=== PATIENT | female | born 1990 | race Asian ===

== ENCOUNTER 2023-11-25 13:48 | Outpatient (AMB) | payer OTHER, SELFPAY ==
--- NOTE | 2023-11-25 13:50 | AM.OFFWIN_ITS ---
Intake Vital Signs 11/25/23 13:56 Height 5 ft 1 in Weight 156 lb BMI 29.5 BP 114/62 Blood Pressure Location Rt brachial Position Sitting Pulse 78 Pulse Source Pulse Oximeter Temp 98.2 F Temp Source Oral Pulse Oximetry (%) 98 Oxygen Delivery Method Room Air Intake Visit Reasons: EP Removal of stitches Intake Note: Pt is here requesting to have her stitches removed. Pt had the stitches put in one week ago at [facility]. Patient Tobacco Use Status: Never used Tobacco Allergies No Known Allergies Allergy (Verified 11/25/23 14:24) Medication List - Last Reconciled 11/25/23 by Tino Marley MD No Known Home Meds Do you need a note to return to daycare/school/sports/work: No HPI EP Removal of stitches HPI Details 33 yr old female presents to the office for a sick visit. She would l michael the stiches removed from a digit in the right hand PFSH Family History (Updated 10/02/22 @ 08:02 by Whit Carlton MD) Father CAD (coronary artery disease) Mother HTN (hypertension) with goal to be determined Social History (Updated 10/02/22 @ 08:05 by Whit Carlton MD) Household Members Other:: , from [place], exercise, Housing: House Patient Tobacco Use Status: Never used Tobacco e-Cigarette/Vaping Use: Never Used service: No Current occupational status: unemployed Cognitive needs: No Hearing needs: No Vision needs: No Physical Exam Vital Signs: Last Vital Signs Temp 98.2 F 11/25/23 13:56 Pulse 78 11/25/23 13:56 BP 114/62 11/25/23 13:56 Pulse Ox 98 11/25/23 13:56 Oxygen Delivery Method Room Air 11/25/23 13:56 BMI result Body Mass Index 29.5 Extrem Other: Right hand: 3 stichces removed. Patient tolerated the procedure well. Assessment & Plan Assessment & Plan (1) Open wound of digit of hand: Code(s): S61.209A - Unspecified open wound of unspecified finger without damage to nail, initial encounter Plan Sutures removed. Patient tolerated the procedure well. Coding Level of Care Code Est Pt Level 3 (57702) Diagnoses Open wound of digit of hand S61.209A
[2023-11-25 13:56] VITALS: BP 114/62; PULSE 78; TEMP 36.8; O2SAT 98; BMI 29.5
== END 2023-11-25 14:37 | disposition home or self-care (01) ==
PROVIDERS: PCP Internal Medicine; Visit Provider Internal Medicine
DX: S61.209A Unspecified open wound of unspecified finger without damage to nail, initial encounter (principal)
CPT/HCPCS: 99213

== ENCOUNTER 2024-06-24 12:43 | Outpatient (AMB) | payer OTHER, SELFPAY ==
[2024-06-24 13:15] VITALS: BP 112/74; PULSE 76; O2SAT 99; BMI 28.2
--- NOTE | 2024-06-24 13:15 | A.OFFPC_ITS ---
Vital Signs 06/24/24 13:15 Height 5 ft 1 in Weight 149 lb BMI 28.2 BP 112/74 Blood Pressure Location Lt brachial Position Sitting Pulse 76 Pulse Source Pulse Oximeter Pulse Oximetry (%) 99 Oxygen Delivery Method Room Air Intake Visit Reasons: PE Intake Note: Pt is here today for PE. Allergies No Known Allergies Allergy (Verified 06/24/24 13:15) Medication List - Last Reconciled 06/24/24 by Whit Carlton MD docosahexaenoic acid ( DHA) mg PO Tobacco use date assessed: 06/24/24 Dental Screening Dental Screen Date: 06/24/24 Did you have a dental visit in the last 12 months?: Yes Did you have a dental problem in the last 6 months where you did not have access to dental care?: No Was dental information given to patient?: Patient has dentist HPI PE HPI Details Pt presents for PE. Pt complains of chronic L sided LBP since 2021, has been getting worse over last 10 months since patient has been taking care of her 10 month old son. Ptient is 5 week . PFSH Family History Father CAD (coronary artery disease) Mother HTN (hypertension) with goal to be determined Social History Household Members Other:: , from [place], exercise, Housing: House Patient Tobacco Use Status: Never used Tobacco e-Cigarette/Vaping Use: Never Used service: No Current occupational status: unemployed Cognitive needs: No Hearing needs: No Vision needs: No Questionnaire PHQ-9 Over the last 2 weeks, how often have you been bothered by any of the following problems? 1. Little interest or pleasure in doing things: not at all 2. Feeling down, depressed, or hopeless: not at all 3. Trouble falling or staying asleep, or sleeping too much: not at all 4. Feeling tired or having little energy: several days 5. Poor appetite or overeating: several days 6. Feeling bad about yourself - or that you are a failure or have let yourself or your family down: not at all 7. Trouble concentrating on things, such as reading the newspaper or watching television: not at all 8. Moving or speaking so slowly that other people could have noticed. Or the opposite - being so fidgety or restless that you have been moving around a lot more than usual: not at all 9. Thoughts that you would be better off or of hurting yourself in some way: not at all Total score: 2 Depression Screening Interpretation: Negative Depression Screening Done: Yes [id number] - PHQ-9 Billing: Yes Source: Developed by Drs. Poli Alvarez, Juana Figueroa, Fransisco Damon and colleagues, with an educational sanjana from [employer]. Thrive Questionnaire Date Thrive assessed: 06/24/24 I am a: Patient What is your living situation today?: I have a steady place to live Within the past 12 months, did the food you bought not last and you didn't have the money to get more?: Never true Within the past 12 months, did you worry whether your food would run out before you got money to buy more?: Never true Do you have trouble paying for medicines?: No Do you have trouble getting transportation to medical appointments?: Yes Do you have trouble paying your heating and electricity bill?: No Do you have trouble taking care of your child, family member or friend?: No Do you have trouble with day-to-day activities such as bathing, preparing meals, shopping, managing finances, etc.?: No Are you currently unemployed and looking for a job?: No Are you interested in more education?: Yes Please select the resources that you would like help with: Daily support Currently or been in a relationship where the following occur: No concerns reported THRIVE Score: 1 AUDIT C Alcohol Use Questionnaire (AUDIT-C) 1. How often do you have a drink containing alcohol?: Never 3. How often do you have six or more drinks on one occasion?: Never Total Score: 0 GWENDOLYN-7 AMB Questionnaire GWENDOLYN-7 Date GWENDOLYN - 7 assessed: 06/24/24 Feeling nervous, anxious, or on edge: 1 = Several days Not being able to stop or control worryin = Several days Worrying too much about different things: 0 = Not at all Trouble relaxin = Not at all Being so restless that it is hard to sit still: 0 = Not at all Becoming easily annoyed or irritable: 0 = Not at all Feeling afraid as if something awful might happen: 0 = Not at all Total GWENDOLYN-7 score (0-4 normal; 5-9 mild; 10-14 moderate; 15-21 severe): 2 Source: Developed by Drs. Poli Alvarez, Juana Figueroa, Fransisco Damon and colleagues, with an educational sanjana from [employer]. GWENDOLYN-7 Assessment Billing GWENDOLYN-7 Assessment Tool: GWENDOLYN-7 Assessment [id number] Review of Systems Const All systems reviewed & are unremarkable except as noted in HPI and below Eyes Reports no additional complaints ENT Reports no additional complaints Card Reports no additional complaints Resp Reports no additional complaints GI Reports no additional complaints Reports no additional complaints Physical exam (Primary Care) Vital Signs: Last Vital Signs Pulse 76 06/24/24 13:15 BP 112/74 06/24/24 13:15 Pulse Ox 99 06/24/24 13:15 Oxygen Delivery Method Room Air 06/24/24 13:15 BMI result Body Mass Index 28.2 Tobacco/Smoking Status: Tobacco use Status Tobacco use date assessed 06/24/24 06/24/24 13:16 Patient Tobacco Use Status Never used Tobacco 06/24/24 13:16 e-Cigarette/Vaping Use Never Used 06/24/24 13:16 PHQ-9: PHQ-9 Score PHQ-9: Total score 2 06/24/24 13:16 Depression Screening Interpretation: Negative Thrive Assessment: Date of Thrive Assessment Date Thrive assessed 06/24/24 06/24/24 13:26 Currently or been in a relationship where the following occur: No concerns reported Const General: no acute distress HENMT Ears: hearing grossly normal bilaterally Face and sinus: Yes normal facial exam Throat: Yes posterior oropharynx normal Eyes General: appearance normal, both eyes and all related structures Neck Neck: Yes no lymphadenopathy and Yes supple Resp Effort & Inspection: normal respiratory effort Auscultation: clear to auscultation bilaterally Cardio Rhythm: regular rhythm Heart sounds: S1 normal heart sound present and S2 normal heart sound present GI Inspection: Yes normal to inspection Palpation (GI): Soft to palpation Percussion: Yes normal to percussion Auscultation: normal bowel sounds Back/Spine/Pelvis Other: There is ready reproducible tenderness in the left lower lumbar region and over left SI joint, there is a full range of motion both hips . straight leg rising 90 degrees bilaterally, deep tendon reflexes 1+ bilaterally Assessment and Plan Assessment & Plan (1) SI (sacroiliac) pain: Code(s): M53.3 - Sacrococcygeal disorders, not elsewhere classified Plan: For chronic lower back and SI joint pain patient will be referred to physical therapy. She was advised to take Tylenol only in the 1st trimester (2) Annual physical exam: Code(s): Z00.00 - Encounter for general adult medical examination without abnormal findings Plan: Well-balanced diet regular physical activity discussed with the patient. She will follow-up with the tourist adviser for care Orders: Orders PT Evaluation and Treatment Today M53.3 - Sacrococcygeal disorders, not elsewhere classified Coding Level of Care Code Est Pt Prev Care 18-39y([id number]) Diagnoses SI (sacroiliac) pain M53.3 Annual physical exam Z00.00 Additional Codes GWENDOLYN-7 Assessment Billing - GWENDOLYN-7 Assessment Tool: GWENDOLYN-7 Assessment [id number] ([id number])
== END 2024-06-24 15:11 | disposition home or self-care (01) ==
PROVIDERS: PCP Internal Medicine; Visit Provider Internal Medicine
DX: Z00.00 Encounter for general adult medical examination without abnormal findings (principal); M53.3 Sacrococcygeal disorders, not elsewhere classified
CPT/HCPCS: 99395

== ENCOUNTER 2025-01-10 12:10 | Outpatient (AMB) | payer OTHER, SELFPAY ==
--- NOTE | 2025-01-10 12:57 | AM.OFFWIN_ITS ---
Intake Vital Signs 01/10/25 13:00 Height 5 ft 1 in Weight 75.75 kg BMI 31.6 BP 110/62 Blood Pressure Location Rt brachial Position Sitting Pulse 62 Pulse Source Pulse Oximeter Pulse Oximetry (%) 98 Oxygen Delivery Method Room Air Intake Visit Reasons: EP Flu 1+week ago, eye itching, headache Intake Note: Patient here for severe headaches with no improvement. She states she had the flu and is feeling better overall but headaches are not getting any better. She is 34 weeks . Patient Tobacco Use Status: Never used Tobacco Allergies No Known Allergies Allergy (Verified 01/10/25 13:02) Do you need a note to return to daycare/school/sports/work: No HPI EP Flu 1+week ago, eye itching, headache HPI Details Patient notes recent flu infection last week which they attempted to treat with Tamiflu however she did not tolerate. She needs over the past 2 days she has been having worsening headache and shortness of breath. She she is 34 weeks and she does note good movement however she is having some cramping. She notes she gets dizzy and more short of breath at times with movement and worsening headache. She notes she has had the flu twice in the past month and a half and has been between ER, urgent care and has seen OB she has not seen OB within the past week since worsening headaches. [facility] Family History Father CAD (coronary artery disease) Mother HTN (hypertension) with goal to be determined Social History Household Members Other:: , from [place], exercise, Housing: House Patient Tobacco Use Status: Never used Tobacco e-Cigarette/Vaping Use: Never Used service: No Current occupational status: unemployed Cognitive needs: No Hearing needs: No Vision needs: No Review of Systems Const Reports as per HPI and Reports no additional complaints Eyes Reports no additional complaints Card Reports as per HPI and Reports no additional complaints Resp Reports as per HPI and Reports no additional complaints GI Reports as per HPI and Reports no additional complaints Reports as per HPI Neuro Reports no additional complaints and Reports as per HPI Physical Exam Vital Signs: Last Vital Signs Pulse 62 01/10/25 13:00 BP 110/62 01/10/25 13:00 Pulse Ox 98 01/10/25 13:00 Oxygen Delivery Method Room Air 01/10/25 13:00 BMI result Body Mass Index 31.6 Const General: cooperative, comfortable and no acute distress Orientation/consciousness: patient oriented x3 Resp Effort & Inspection: able to speak in complete sentences (However patient is visibly short of breath and needs to take breaks between) Auscultation: clear to auscultation bilaterally Cardio Rate: regular rate Rhythm: regular rhythm Heart sounds: S1 normal heart sound present and S2 normal heart sound present Neuro General: patient oriented x3 Assessment & Plan Assessment & Plan (1) Headache: Code(s): R51.9 - Headache, unspecified (2) 34 weeks gestation of : Code(s): Z3A.34 - 34 weeks gestation of (3) Shortness of breath: Code(s): R06.02 - Shortness of breath Plan Given patient's constellation of symptoms and advanced I have advised her to be seen at [facility] for further evaluation, possible IV fluids and most importantly monitoring of the baby. Her vital signs are stable and she will proceed by car I did place a call to her OBGYN office. Post visit I did speak with Susanne her Ob acoustical logging engineer who agreed with assessment and will expect her at [facility]. She notes patient has also was severely anemic and needed iron infusions which may be contributing to her current shortness of breath. Coding Level of Care Code Est Pt Level 4 (20913) Diagnoses Headache R51.9 34 weeks gestation of Z3A.34 Shortness of breath R06.02
[2025-01-10 13:00] VITALS: BP 110/62; PULSE 62; O2SAT 98; BMI 31.6
== END 2025-01-10 13:50 | disposition home or self-care (01) ==
PROVIDERS: PCP Internal Medicine; Visit Provider Physician Assistant
DX: R51.9 Headache, unspecified (principal); Z3A.34 34 weeks gestation of pregnancy; R06.02 Shortness of breath

== ENCOUNTER → 2025-01-10 12:10 | Outpatient (BNVA) | payer OTHER, SELFPAY | PROVIDERS: PCP Internal Medicine | DX: O26.893 Other specified pregnancy related conditions, third trimester (principal); R51.9 Headache, unspecified; R06.02 Shortness of breath; Z3A.34 34 weeks gestation of pregnancy | CPT/HCPCS: 99212 ==